=== PATIENT | male | born 1945 | race Caucasian/White ===

== ENCOUNTER 2017-11-19 15:58 | Emergency (ER) | payer MEDICAID, OTHER ==
[~2017-11-19] VITALS: Ht 172.7 cm; Wt 117.9 kg
[~2017-11-19 15:58] MED LIST: ASPIR-LOW81 M1 PO; INSULIN; METFORMIN HCL500 MG PO; ZES10 PO; ZOC20 PO
[2017-11-19 16:19] VITALS: Ht 172.7 cm; Wt 117.9 kg
[2017-11-19 20:12] VITALS: BP 169/84
== END 2017-11-19 20:12 | disposition home or self-care (01) ==
LOC: ED 15:58
DX: E11.621 Type 2 diabetes mellitus with foot ulcer (principal); I87.2 Venous insufficiency (chronic) (peripheral); I10 Essential (primary) hypertension
CPT/HCPCS: 82962; J1885; Q0092

== ENCOUNTER 2017-12-08 15:05 | Emergency (ER) | payer MEDICAID, OTHER ==
[~2017-12-08] VITALS: Ht 167.6 cm; Wt 87.5 kg
[2017-12-08 15:37] VITALS: BP 127/75; Ht 167.6 cm; Wt 87.5 kg
== END 2017-12-08 17:21 | disposition home or self-care (01) ==
LOC: ED 15:05
DX: I83.028 Varicose veins of left lower extremity with ulcer other part of lower leg (principal)

== ENCOUNTER 2017-12-15 10:05 | Emergency (ER) | payer MEDICAID, OTHER ==
[~2017-12-15] VITALS: Ht 172.7 cm; Wt 92.1 kg
[2017-12-15 10:35] VITALS: Ht 172.7 cm; Wt 92.1 kg
[2017-12-15 12:07] VITALS: BP 150/80
== END 2017-12-15 12:07 | disposition home or self-care (01) ==
LOC: ED 10:05
DX: I87.2 Venous insufficiency (chronic) (peripheral) (principal); I10 Essential (primary) hypertension; E11.9 Type 2 diabetes mellitus without complications; Z89.421 Acquired absence of other right toe(s)

== ENCOUNTER 2017-12-30 17:43 | Emergency (ER) | payer MEDICAID, OTHER ==
[~2017-12-30] VITALS: Ht 172.7 cm; Wt 99.8 kg
[2017-12-30 17:57] VITALS: Ht 172.7 cm; Wt 99.8 kg
[2017-12-30 18:32] LABS: PLATELET COUNT 249 x10^3mcL (130-400)
[2017-12-30 18:33] LABS: RED CELL DISTRIBUTION WIDTH 15.3 % (11.5-14.5)
[2017-12-30 18:42] VITALS: BP 154/76
[2017-12-30 18:42] LABS: CALCIUM 8.9 mg/dL (8.5-10.1); CARBON DIOXIDE 33.1 mmol/L (21-32); CHLORIDE SERUM 100 mmol/L (98-107); CREATININE SERUM 1.4 mg/dL (0.7-1.3); GLUCOSE SERUM 242 mg/dL (74-106); POTASSIUM SERUM 4.5 mmol/L (3.5-5.1); SODIUM SERUM 136 mmol/L (136-145)
[2017-12-30 18:45] LABS: ALKALINE PHOSPHATASE 111 U/L (46-116); ALT/SGPT 16 U/L (16-63); AST/SGOT 18 U/L (15-37); BILIRUBIN TOTAL 0.26 mg/dL (0.20-1.00); TOTAL PROTEIN, SERUM 7.6 g/dL (6.4-8.2)
[2017-12-30 18:46] LABS: ALBUMIN 3.3 g/dL (3.4-5.0)
== END 2017-12-30 18:42 | disposition short-term general hospital (02) ==
LOC: ED 17:43
PROVIDERS: Emergency Medicine
DX: I21.9 Acute myocardial infarction, unspecified (principal); I10 Essential (primary) hypertension; E11.9 Type 2 diabetes mellitus without complications
CPT/HCPCS: 83880; J2270; J2405; Q0092